=== PATIENT | male | born 1980 ===

== ENCOUNTER 2017-04-15 06:10 | Day surgery (SDC) | payer OTHER ==
[2017-04-13 10:50] VITALS: BMI 39.8
[2017-04-15] MEDS ORDERED: Lidocaine 2% Inj (20ml) ONE (06:27)
[2017-04-15] MEDS ORDERED: Iodixanol 320 MG/ML 200 ML BOTTLE IV ONE (06:27)
[2017-04-15] MEDS ORDERED: Iodixanol 320 MG/ML 100 ML BOTTLE IV ONE (06:27)
[2017-04-15] MEDS ORDERED: Phenylephrine 10 mg/ml Inj ONE (06:27)
[2017-04-15] MEDS ORDERED: Iohexol 350mgl/ml 50 ML ONE (06:27)
[2017-04-15] MEDS ORDERED: Nitroglycerin 50mg in D5W 0 MG/0 ML BOTTLE IV ONE (06:28)
[2017-04-15 07:02] LABS: BASO # 0.04 K/mm3 (0.0-2.0); BASO % 0.5 % (0.0-3.0); EOS # 0.4 (0.0-0.7); EOS % 4.3 % (1.5-5.0); GRAN # 4.66 (1.4-6.5); GRAN % 55.4 % (50.0-68.0); HEMATOCRIT 41.2 % (42.0-52.0); LYMPH # 2.6 (1.2-3.4); MEAN CELL VOLUME 68.8 fl (80.0-105.0); MEAN CORPUSCULAR HEMOGLOBIN 22.5 pg (25.0-35.0); MEAN CORPUSCULAR HGB CONC 32.8 g/dl (31.0-37.0); MEAN PLATELET VOLUME 10.1 fl (7.0-11.0); MONO # 0.7 (0.1-0.6); MONO % 8.8 % (1.0-6.0); RED CELL DISTRIBUTION WIDTH 15.3 % (11.5-14.5); WHITE BLOOD COUNT 8.4 10^3/ul (4.5-11.0)
[2017-04-15 07:08] LABS: INR 0.98 (0.93-1.08); PARTIAL THROMBOPLASTIN TIME 30.8 Seconds (25.1-36.5)
[2017-04-15 07:11] LABS: BLOOD UREA NITROGEN 14 mg/dL (7-21); CALCIUM 8.5 mg/dL (8.4-10.5); CARBON DIOXIDE 23 mmol/L (21-33); CHLORIDE 106 mmol/L (98-107); GFR AFRICAN-AMERICAN > 60; GLUCOSE,RANDOM 96 mg/dL (70-110); POTASSIUM 3.6 mmol/L (3.6-5.0); SODIUM 140 mmol/L (132-148)
[2017-04-15] MEDS ORDERED: Midazolam 2 MG/2 ML VIAL ONE ×2 (09:00→09:11)
[2017-04-15 10:13] VITALS: RESP 20; TEMP 98
[2017-04-15] MEDS ORDERED: Sodium Chloride 0.45% 1,000 ML IV SCH (10:15)
[2017-04-15 14:14] VITALS: O2SAT 98
[2017-04-15 14:18] VITALS: BP 110/69; PULSE 70
--- NOTE | 2017-04-15 14:26 | CARDCATH ---
PROCEDURE DATE: 04/15/2017 HISTORY: The patient is a 37-year-old male with a history of smoking as well as a strong family history of hypertension who presents with exertional shortness of breath. No angina noted. Noninvasive testing revealed an abnormal stress test with a markedly abnormal left ventricle with an ejection fraction of 14% on stress testing. A cardiac catheterization was recommended. PROCEDURE: Left heart catheterization with coronary angiography and left ventriculogram with supraaortic valvular injection. The right femoral artery was cannulated with 6-Bulgarian sheath. There were no complications. The findings on catheterization revealed a left ventricle that was markedly dilated and severely hypokinetic with an estimated ejection fraction between 10 and 15%. Supraaortic valvular injection revealed 1+ aortic insufficiency. His coronary anatomy revealed a left dominant circulation. The RCA revealed diffuse atherosclerosis with a 90% stenosis in the proximal portion. The left main artery was unremarkable. The LAD revealed a 90% stenosis in the proximal portion. The circumflex artery, which was a dominant vessel, revealed subtotal occlusion in its proximal portion. The obtuse marginal branch was subtotally occluded. Angio-Seal was used to close the femoral artery site. The patient tolerated the procedure well. In summary, the procedure revealed severe triple-vessel disease. Severe dilated cardiomyopathy. Given these findings, the patient will require coronary bypass surgery. We will call his cardiac surgeons to arrange for the procedure. Madhu Vuong MD
--- NOTE | 2017-04-15 22:56 | CARD ---
APPROVED REPORT EKG Measurement Heart [id number] IA 160P16 [id number] <Conclusion> Normal sinus rhythm Inferior infarct, age undetermined Cannot rule out Anterior infarct, age undetermined T wave abnormality, consider lateral ischemia Abnormal ECG
== END 2017-04-15 16:30 | disposition home or self-care (01) ==
LOC: CATH 06:10
PROVIDERS: ATTEND Internal Medicine Cardiovascular Disease
DX: I25.10 Atherosclerotic heart disease of native coronary artery without angina pectoris (principal); I42.0 Dilated cardiomyopathy; I35.1 Nonrheumatic aortic (valve) insufficiency; Z87.891 Personal history of nicotine dependence; Z82.49 Family history of ischemic heart disease and other diseases of the circulatory system
CPT/HCPCS: 36415; 80048; 85025; 85610; 85730; 86850; 86900; 93005; 93458; 99152; C1760; C1769; C2629; J1644; J2250; J3010; J7030; J7040; Q9967 ×2

== ENCOUNTER 2017-05-16 16:57 | Inpatient (IN) | payer OTHER ==
[2017-05-16 17:14] VITALS: BMI 36.3
--- NOTE | 2017-05-16 17:53 | ED PDOC ---
Arrival/HPI - General Historian: Patient - History of Present Illness Time/Duration: 24 hours Symptom Onset: Gradual Symptom Course: Unchanged Quality: Burning Severity Level: Moderate Context: Exertion <Jorge Jones - Last Filed: 05/16/17 20:02> <Vernon Flanagan DO - Last Filed: 05/16/17 20:52> - General Chief Complaint: Wound Check Time Seen by Provider: 05/16/17 16:58 - History of Present Illness Narrative History of Present Illness (Text): 05/16/17 17:49 This is a 37 yo male with past medical hx of CAD, s/p quintuple bypass earlier this month, presenting with chief complaint of pain and cellulitis of left leg. Patient had quintuple bypass sx at [place] in [place] on May 03, earlier this month. The surgery was performed by Dr. Goldman. Patient's only post op complication was he experienced some heart palpitations. He began developing redness and pain with walking on left lower leg yesterday. Pain was at same site of vein harvest for CABG surgery. Pt went to see primary Dr. Guerra earlier today who recommended pt come to ER. Pt says pain is mainly to touch and with walking. Pt denies fevers, chills, other systemic sx. PMH: CAD PSH: knee sx, quintuple bypass 2016 Allergies: NKDA FH: DM, heart disease Social hx: former smoker, quit 1 month ago. Social drinker. Uses marijuana. Lives with mother. (Jorge Jones) Past Medical History - Provider Review Nursing Documentation Reviewed: Yes - Travel History Have you recently traveled outside [place] w/in the past 3 mons?: No - Infectious Disease Hx of Infectious Diseases: None - Tetanus Immunization Tetanus Immunization: Unknown - Cardiac Hx Cardiac Disorders: Yes Hx Pacemaker: No Other/Comment: open heart surgery. external defib in place 05/16/17 - Pulmonary Hx Respiratory Disorders: No - Neurological Hx Neurological Disorder: No Hx Paralysis: No - HEENT Hx HEENT Disorder: Yes Other/Comment: glasses - Renal Hx Renal Disorder: No - Endocrine/Metabolic Hx Endocrine Disorders: No - Hematological/Oncological Hx Blood Disorders: No Hx Blood Transfusions: No - Integumentary Hx Dermatological Disorder: No - Musculoskeletal/Rheumatological Hx Musculoskeletal Disorders: Yes Other/Comment: L knee sx - Gastrointestinal Hx Gastrointestinal Disorders: No - Genitourinary/Gynecological Hx Genitourinary Disorders: No - Psychiatric Hx Psychophysiologic Disorder: No Hx Emotional Abuse: No Hx Physical Abuse: No Hx Substance Use: No - Surgical History Hx Musculoskeletal Surgery: Yes (L knee) Hx Open Heart Surgery: Yes Other/Comment: EXTERNAL DEFIB PRESENT - Anesthesia Hx Anesthesia: Yes Hx Anesthesia Reactions: Yes (TOOK VERY LONG TO WEAR OFF) Hx Malignant Hyperthermia: No - Suicidal Assessment Feels Threatened In Home Enviroment: No <Jorge Jones - Last Filed: 05/16/17 20:02> Family/Social History - Physician Review Nursing Documentation Reviewed: Yes Family/Social History: Diabetes, CAD/SD Smoking Status: Former Smoker Hx Alcohol Use: Yes Hx Substance Use: Yes <Jorge Jones - Last Filed: 05/16/17 20:02> Allergies/Home Meds <Jorge Jones - Last Filed: 05/16/17 20:02> <Vernon Flanagan DO - Last Filed: 05/16/17 20:52> Allergies/Adverse Reactions: Allergies No Known Allergies Allergy (Verified 05/16/17 17:14) Home Medications: Home Meds Medication Instructions Recorded Confirmed Aspirin [Ecotrin] 81 mg PO DAILY 04/13/17 05/16/17 Metoprolol Succinate [Toprol XL] 25 mg PO DAILY 04/13/17 05/16/17 traMADol [Ultram] 50 mg PO Q6H PRN 04/13/17 05/16/17 Atorvastatin [Lipitor] 80 mg PO DAILY 04/15/17 05/16/17 Amiodarone [Cordarone] 1 tab PO DAILY 05/16/17 05/16/17 Aspirin [[place] Aspirin] 81 mg PO DAILY 05/16/17 05/16/17 Carvedilol [Coreg] 1 tab PO DAILY 05/16/17 05/16/17 Clopidogrel [Plavix] 1 tab PO DAILY 05/16/17 05/16/17 Docusate Sodium [Stool Softener] 1 tab PO TID 05/16/17 05/16/17 Furosemide [Lasix] 20 mg PO DAILY 05/16/17 05/16/17 Potassium Chloride [K-Dur 20 mEq 1 tab PO DAILY 05/16/17 05/16/17 ER Tab] Review of Systems - Review of Systems Constitutional: absent: Fatigue, Fevers, Night Sweats Eyes: absent: Vision Changes, Photophobia ENT: absent: Hearing Changes, TMJ Pain Respiratory: absent: SOB, Cough Cardiovascular: absent: Chest Pain, Palpitations Gastrointestinal: absent: Abdominal Pain, Stool Changes Genitourinary Male: absent: Dysuria, Frequency Musculoskeletal: absent: Arthralgias, Back Pain Skin: Rash, Skin Lesions, Cellulitis Neurological: absent: Headache, Dizziness Endocrine: absent: Diaphoresis, Polyuria Hemo/Lymphatic: absent: Adenopathy, Easy Bleeding Psychiatric: absent: Anxiety, Depression <Jorge Jones - Last Filed: 05/16/17 20:02> Physical Exam Vital Signs Reviewed: Yes Mental Status: Positive for: Alert and Oriented X 3 - Systems Exam Head: Present: Atraumatic, Normocephalic Pupils: Present: PERRL Extroacular Muscles: Present: EOMI Conjunctiva: Present: Normal Mouth: Present: Moist Mucous Membranes Respiratory/Chest: Present: Clear to Auscultation, Good Air Exchange. No: Respiratory Distress Cardiovascular: Present: Normal S1, S2 Abdomen: Present: Normal Bowel Sounds. No: Tenderness, Distention, Peritoneal Signs Upper Extremity: Present: Normal Inspection. No: Cyanosis, Edema Lower Extremity: Present: Tenderness, Erythema, Other (Cellulitis, no pus or drainage, sutures intact.). No: Normal Inspection Neurological: Present: GCS=15, CN II-XII Intact, Speech Normal Skin: Present: Erythematous Psychiatric: Present: Alert, Oriented x 3, Normal Insight, Normal Concentration <Jorge Jones - Last Filed: 05/16/17 20:02> Vital Signs Temp Pulse Resp BP Pulse Ox 05/16/17 20:11 76 124/76 05/16/17 19:10 98.0 F 83 18 125/65 95 05/16/17 17:41 99.9 F H 05/16/17 17:34 98.1 F 98 H 17 117/75 95 05/16/17 17:17 98.1 F 98 H 17 117/75 95 - Lab Interpretations Lab Results: 05/16/17 17:58 05/16/17 17:58 Lab Results 05/16/17 18:16: pO2 67 H, VBG pH 7.41, VBG pCO2 40.0, VBG HCO3 25.4, VBG Total CO2 26.6, VBG O2 Sat (Calc) 95.7 H, VBG Base Excess 0.7, VBG Potassium 3.9, Glucose 156 H, Lactate 1.9, FiO2 21.0, Sodium 138.0, Chloride 104.0, Venous Blood Potassium 3.9 05/16/17 17:58: Sodium 139, Potassium 3.8, Chloride 103, Carbon Dioxide 25, Anion Gap 15, BUN 15, Creatinine 1.0, Est GFR ( Amer) > 60, Est GFR (Non- Af Amer) > 60, Random Glucose 153 H, Calcium 9.1, Total Bilirubin 1.5 H, AST 29 , ALT 59 H, Alkaline Phosphatase 85, Total Protein 7.5, Albumin 4.2, Globulin 3.3, Albumin/Globulin Ratio 1.2 05/16/17 17:58: WBC 11.1 H D, RBC 4.21, Hgb 10.3 L D, Hct 32.5 L, MCV 77.2 L D, MCH 24.5 L, MCHC 31.7, RDW 21.2 H, Plt Count 376, MPV 9.1, Gran % 77.9 H, Lymph % (Auto) 9.0 L, [place] % (Auto) 10.3 H, Eos % (Auto) 2.6, Baso % (Auto) 0.2, Gran # 8.67 H, Lymph # 1.0 L, [place] # 1.2 H, Eos # 0.3, Baso # 0.02 - Medication Orders Current Medication Orders: Amiodarone HCl (Cordarone) 200 mg PO DAILY [facility] Aspirin (Ecotrin) 81 mg PO DAILY [facility] Atorvastatin Calcium (Lipitor) 80 mg PO DIN [facility] Last Admin: 05/16/17 19:53 Dose: 80 mg Carvedilol (Coreg) 6.25 mg PO 0800,1800 [facility] Last Admin: 05/16/17 20:11 Dose: 6.25 mg [facility] Pulse and Blood Pressure Document 05/16/17 20:11 SC (Rec: 05/16/17 20:12 [facility]-[id number]) Pulse Pulse Rate (60-90) 76 Blood Pressure Blood Pressure (100/60-150/90) 124/76 Clopidogrel Bisulfate (Plavix) 75 mg PO DAILY [facility] Docusate Sodium (Colace Liquid) 100 mg PO TID [facility] Last Admin: 05/16/17 20:11 Dose: 100 mg Enoxaparin Sodium (Lovenox) 30 mg SC DAILY [facility] PRN Reason: Protocol Furosemide (Lasix) 20 mg PO DAILY [facility] Ceftriaxone Sodium (Rocephin 1 Gram Ivpb) 1 gm in 100 mls @ 100 mls/hr IVPB DAILY [facility] PRN Reason: Protocol Metoprolol Succinate (Toprol Xl) 25 mg PO DAILY [facility] Neomycin/Polymyxin/Bacitracin (Neosporin Triple Antibiotic Oint) 0 gm TOP DAILY [facility] Pantoprazole Sodium (Protonix Ec Tab) 40 mg PO 0600 [facility] Potassium Chloride (K-Dur 20 Meq Er Tab) 20 meq PO DAILY [facility] Tramadol HCl (Ultram) 50 mg PO Q6H PRN PRN Reason: Pain, severe (8-10) Last Admin: 05/16/17 19:53 Dose: 50 mg MAR Pain Assessment Document 05/16/17 19:53 SC (Rec: 05/16/17 19:53 SC [id number]) Pain Reassessment Is this a pain reassessment? Yes Sleep Is patient sleeping during reassessment? No Presence of Pain Presence of Pain Yes Pain Scale Used Pain Scale Used Numeric Location Pain Location Body Site Chest Description Description Constant Intensity of Pain at present 6 Discontinued Medications Ceftriaxone Sodium (Rocephin 1 Gram Ivpb) 1 gm in 100 mls @ 200 mls/hr IVPB STAT STA PRN Reason: Protocol Stop: 05/16/17 19:00 Last Admin: 05/16/17 19:19 Dose: 200 mls/hr eMAR Start Stop Document 05/16/17 19:19 RG (Rec: 05/16/17 19:20 RG [facility] [id number]) Intravenous Solution Start Date 05/16/17 Start Time 19:19 - PA / SHIP LOADER / Resident Statement AGNIESZKA has reviewed & agrees with the documentation as recorded. AGNIESZKA has examined the patient and agrees with the treatment plan. <Vernon Flanagan DO - Last Filed: 05/16/17 20:52> Disposition/Present on Arrival - Present on Arrival History of DVT/PE: No History of Uncontrolled Diabetes: No Urinary Catheter: No History of Decub. Ulcer: No History Surgical Site Infection Following: None - Disposition Have Diagnosis and Disposition been Completed?: Yes Disposition Time: 19:00 Patient Plan: Admission <Jorge Jones - Last Filed: 05/16/17 20:02> - Present on Arrival Any Indicators Present on Arrival: No - Disposition Have Diagnosis and Disposition been Completed?: Yes <Vernon Flanagan DO - Last Filed: 05/16/17 20:52> - Disposition Diagnosis: Cellulitis Disposition: HOSPITALIZED Condition: GUARDED
[2017-05-16 18:15] LABS: BASO # 0.02 K/mm3 (0.0-2.0); BASO % 0.2 % (0.0-3.0); EOS # 0.3 (0.0-0.7); EOS % 2.6 % (1.5-5.0); GRAN # 8.67 (1.4-6.5); GRAN % 77.9 % (50.0-68.0); HEMATOCRIT 32.5 % (42.0-52.0); MEAN CELL VOLUME 77.2 fl (80.0-105.0); MEAN CORPUSCULAR HEMOGLOBIN 24.5 pg (25.0-35.0); MEAN CORPUSCULAR HGB CONC 31.7 g/dl (31.0-37.0); MEAN PLATELET VOLUME 9.1 fl (7.0-11.0); MONO # 1.2 (0.1-0.6); MONO % 10.3 % (1.0-6.0); RED CELL DISTRIBUTION WIDTH 21.2 % (11.5-14.5); WHITE BLOOD COUNT 11.1 10^3/ul (4.5-11.0)
[2017-05-16 18:20] LABS: VENOUS BLOOD GAS BASE EXCESS 0.7 mmol/L (0.0-2.0); VENOUS BLOOD PH 7.41 (7.32-7.43)
[2017-05-16 18:23] LABS: ALB/GLOB RATIO 1.2 (1.1-1.8); ALKALINE PHOSPHATASE 85 U/L (38-126); ALT/SGPT 59 U/L (7-56); AST/SGOT 29 U/L (17-59); BILIRUBIN,TOTAL 1.5 mg/dL (0.2-1.3); BLOOD UREA NITROGEN 15 mg/dL (7-21); CALCIUM 9.1 mg/dL (8.4-10.5); CARBON DIOXIDE 25 mmol/L (21-33); CHLORIDE 103 mmol/L (98-107); GFR AFRICAN-AMERICAN > 60; GLUCOSE,RANDOM 153 mg/dL (70-110); POTASSIUM 3.8 mmol/L (3.6-5.0); SODIUM 139 mmol/L (132-148); TOTAL PROTEIN 7.5 g/dL (5.8-8.3)
[2017-05-16] MEDS ORDERED: cefTRIAXone 1 gm 1 GM/100 ML BAG IVPB STA (18:31)
--- NOTE | 2017-05-16 19:32 | CP.PCM.HP ---
History of Present Illness - History of Present Illness History of Present Illness: CC: Pain when I walk. Patient is a 37 y/o Male with pmh significant for CAD with 5 vessel disease s/p recent quintuple bypass surgery ( 05/03/17) at [facility] by Dr Goldman , with post op complications of anemia with 4 units of prbc transfusion, and arrhythmias with poor LVEF currently with life vest whom went to see Dr Guerra in the office today complaining of surgical incision site infection and pain when he ambulates. Pt was able to ambulate without difficulty, then yesterday he noticed left medial leg was swollen and painful when he ambulates. Otherwise patient denies fever, n/v/d. Denies chest pain, denies inapropriate discharge of the life vest since being discharged home. Admits to chills since the surgery. PMH: CAD s/p quintuple bypass, ischemic dilated cardiomyopathy PSH: Bypass surgery, knee surgery FMH: Mom and dad had [place], htn Social: former tobacco abuse,10 pack a year history, former marijuana abuse, former daily alcohol consumer. Was working as a customer service correspondence clerk. Allergy: NKDA Home meds: Please see emr for updated list. Present on Admission - Present on Admission Any Indicators Present on Admission: Yes History of DVT/PE: No History of Uncontrolled Diabetes: No Urinary Catheter: No Decubitus Ulcer Present: No Past Patient History - Infectious Disease Hx of Infectious Diseases: None - Tetanus Immunizations Tetanus Immunization: Unknown - Past Social History Smoking Status: Former Smoker - CARDIAC Hx Cardiac Disorders: Yes Hx Pacemaker: No Other/Comment: open heart surgery. external defib in place 05/16/17 - PULMONARY Hx Respiratory Disorders: No - NEUROLOGICAL Hx Neurological Disorder: No Hx Paralysis: No - HEENT Hx HEENT Problems: Yes Other/Comment: glasses - RENAL Hx Chronic Kidney Disease: No - ENDOCRINE/METABOLIC Hx Endocrine Disorders: No - HEMATOLOGICAL/ONCOLOGICAL Hx Blood Disorders: No Hx Blood Transfusions: No - INTEGUMENTARY Hx Dermatological Problems: No - MUSCULOSKELETAL/RHEUMATOLOGICAL Hx Musculoskeletal Disorders: Yes Other/Comment: L knee sx - GASTROINTESTINAL Hx Gastrointestinal Disorders: No - GENITOURINARY/GYNECOLOGICAL Hx Genitourinary Disorders: No - PSYCHIATRIC Hx Psychophysiologic Disorder: No Hx Emotional Abuse: No Hx Physical Abuse: No Hx Substance Use: Yes - SURGICAL HISTORY Hx Musculoskeletal Surgery: Yes (L knee) Hx Open Heart Surgery: Yes Other/Comment: EXTERNAL DEFIB PRESENT - ANESTHESIA Hx Anesthesia: Yes Hx Anesthesia Reactions: Yes (TOOK VERY LONG TO WEAR OFF) Hx Malignant Hyperthermia: No Meds Allergies/Adverse Reactions: Allergies Allergy/AdvReac Type Severity Reaction Status Date / Time No Known Allergies Allergy Verified 05/16/17 17:14 Physical Exam - Constitutional Appears: No Acute Distress - Head Exam Head Exam: ATRAUMATIC, NORMAL INSPECTION, NORMOCEPHALIC - Eye Exam Eye Exam: EOMI, Normal appearance, PERRL. absent: Scleral icterus Pupil Exam: NORMAL ACCOMODATION - ENT Exam ENT Exam: Mucous Membranes Moist - Neck Exam Neck exam: Positive for: Normal Inspection - Respiratory Exam Respiratory Exam: Clear to Auscultation Bilateral, NORMAL BREATHING PATTERN. absent: Rales, Rhonchi, Wheezes, Respiratory Distress, Stridor - Cardiovascular Exam Cardiovascular Exam: REGULAR RHYTHM, RRR, +S1, +S2. absent: Systolic Murmur - GI/Abdominal Exam GI & Abdominal Exam: Normal Bowel Sounds, Soft. absent: Distended, Firm, Guarding, Rebound, Rigid, Tenderness - Extremities Exam Additional comments: No pitting edema b/l, bilateral intact surgical incision at the medial aspect of the leg, right incision with surrounding ecchymosis, while left incision has surrounding erythema with edema, and warm to touch. No drainage. Patient is able to flex and extend the LE, dorsalis pedis and posterior tibial pulses + 2 kings. Midline chest incison is intact, mild surouding erythema, covered with stery strips. Below xiphoid is another circular incision where the drain was, Results - Vital Signs Recent Vital Signs: Last Vital Signs Temp 98.0 F 05/16/17 19:10 Pulse 83 05/16/17 19:10 Resp 18 05/16/17 19:10 BP 125/65 05/16/17 19:10 Pulse Ox 95 05/16/17 19:10 - Labs Result Diagrams: 05/16/17 17:58 05/16/17 17:58 Assessment & Plan - Assessment and Plan (Free Text) Assessment: Patient is a 37 y/o Male with pmh significant for CAD with 5 vessel disease s/p recent quintuple bypass surgery presenting with infection of the left medial leg surgical wound infection and cellulites. Plan: 1) Left medial leg surgical wound infection and cellulites, r/o DVT - Pending lower extremities u/s - mild leukocytosis, and afebrile. - s/p a dose of Rocephin in the ED, - Will continue Rocephin - ID consulted - Concern for MRSA - Blood culture sent - wound care nurse referral for the lower chest wound - keep leg elevated - Tramadol prn for pain 2) CAD s/p quintuple bypass with ischemic cardiomyoapthy and arrhythmias - Continue to wear the life vest - Cardiology consult - Continue with coreg, Lopressor, asa, high dose Lipitor, Lasix and plavix. - Patient is also on amiodorone for arrhythmias. 3) Constipation prevention- c/w docusate 4) Microcytic anemia due to hemorrhage during the CABG - Patient reproted he had 4 units of prbc at [place] as per patient. - Currently asymptomatic at hgb of 10.3 - will hold off transfusion and transfuse if below 8 5) DVT prophylaxis: Lovenox sc 6) GI prophylaxis: protonix. Patient seen, examined and case discussed with Dr Aldana. - Date & Time Date: 05/16/17 Time: 07:50
[2017-05-16] MEDS: Vancomycin 1gm in NS 250ml 1 GM/250 ML BAG IVPB SCH (22:15)
[2017-05-17] MEDS ORDERED: Pantoprazole 40 mg EC Tab PO SCH (06:00)
[2017-05-17 06:27] LABS: BASO # 0.03 K/mm3 (0.0-2.0); BASO % 0.3 % (0.0-3.0); EOS # 0.4 (0.0-0.7); EOS % 3.9 % (1.5-5.0); GRAN # 7.71 (1.4-6.5); GRAN % 73.1 % (50.0-68.0); HEMATOCRIT 30.2 % (42.0-52.0); LYMPH # 1.3 (1.2-3.4); LYMPH % 12.3 % (22.0-35.0); MEAN CELL VOLUME 77.2 fl (80.0-105.0); MEAN CORPUSCULAR HEMOGLOBIN 24.3 pg (25.0-35.0); MEAN CORPUSCULAR HGB CONC 31.5 g/dl (31.0-37.0); MEAN PLATELET VOLUME 9.2 fl (7.0-11.0); MONO # 1.1 (0.1-0.6); MONO % 10.4 % (1.0-6.0); RED CELL DISTRIBUTION WIDTH 21.1 % (11.5-14.5); WHITE BLOOD COUNT 10.5 10^3/ul (4.5-11.0)
[2017-05-17 07:16] LABS: ALB/GLOB RATIO 1.3 (1.1-1.8); ALKALINE PHOSPHATASE 73 U/L (38-126); ALT/SGPT 42 U/L (7-56); AST/SGOT 35 U/L (17-59); BILIRUBIN,TOTAL 1.2 mg/dL (0.2-1.3); BLOOD UREA NITROGEN 12 mg/dL (7-21); CALCIUM 8.8 mg/dL (8.4-10.5); CARBON DIOXIDE 27 mmol/L (21-33); CHLORIDE 104 mmol/L (98-107); GFR AFRICAN-AMERICAN > 60; GLUCOSE,RANDOM 102 mg/dL (70-110); POTASSIUM 3.7 mmol/L (3.6-5.0); SODIUM 139 mmol/L (132-148); TOTAL PROTEIN 6.8 g/dL (5.8-8.3)
[2017-05-17 07:44] LABS: CHOLESTEROL 135 mg/dL (130-200)
[2017-05-17] MEDS ORDERED: Bacitracin 500 Units/gm Oint Foilpak UD ONE (08:31)
[2017-05-17] MEDS: Enoxaparin 30 mg Syringe SC SCH (09:03)
[2017-05-17] MEDS: Bacitracin/Neomycin/Polymyxin Oint(30GM) TOP SCH (09:03)
--- NOTE | 2017-05-17 09:03 | US ---
HISTORY: Leg pain and swelling. Evaluate for DVT PHYSICIAN(S): Madhu Andrade MD. TECHNIQUE: Duplex sonography and color-flow Doppler with graded compression were used to evaluate the deep venous systems of both lower extremities. FINDINGS: The visualized deep venous systems of both lower extremities are sonographically normal and compressible. Normal wave forms and augmentation are seen. There is no sonographic evidence for deep venous thrombosis in the visualized segments of both lower extremities. IMPRESSION: No sonographic evidence for deep venous thrombosis in the visualized segments of both lower extremities.
[2017-05-17] MEDS: Potassium Chloride 20 mEq ER Tab PO SCH (09:04)
[2017-05-17] MEDS: Metoprolol Succinate 25 mg XL Tab PO SCH (09:05)
[2017-05-17] MEDS ORDERED: cefTRIAXone 1 gm 1 GM/100 ML BAG IVPB SCH (10:00)
--- NOTE | 2017-05-17 10:18 | CARD ---
APPROVED REPORT EKG Measurement Heart [id number] VT 148P76 [id number] <Conclusion> Normal sinus rhythm PRWP Possible anterior MO STTW changes c/w ischemia LVH by voltage Small inferior q waves 2,3,F No change
[2017-05-17] MEDS: Vancomycin 1gm in NS 250ml 1 GM/250 ML BAG IVPB SCH ×2 (10:35→21:09)
--- NOTE | 2017-05-17 10:56 | CP.PCM.PN ---
Subjective - Date & Time of Evaluation Date of Evaluation: 05/17/17 Time of Evaluation: 06:45 - Subjective Subjective: IM progress note for Dr. Aldana/Dr. Guerra Service Patient seen and examined at bedside on F. No acute events reported overnight. Patient complaining of pain associated with left leg and musculoskeletal chest pain associated with his sternal scar s/p CABG on . Patient denies shortness of breath, nasuea, vomiting, fever, chills, abdominal pain, numbness, weakness. Patient receiving IV antibiotics currently. Objective - Vital Signs/Intake and Output Vital Signs (last 24 hours): Temp Pulse Resp BP Pulse Ox 99.2 F 72 20 125/68 95 05/17/17 08:40 05/17/17 09:04 05/17/17 08:40 05/17/17 09:05 05/17/17 08:40 Intake and Output: 05/17/17 05/17/17 06:59 18:59 Intake Total 790 Output Total 100 Balance 690 - Medications Medications: Current Medications Amiodarone HCl (Cordarone) 200 mg PO DAILY [facility] Last Admin: 05/17/17 09:04 Dose: 200 mg Aspirin (Ecotrin) 81 mg PO DAILY [facility] Last Admin: 05/17/17 09:04 Dose: 81 mg Atorvastatin Calcium (Lipitor) 80 mg PO DIN [facility] Last Admin: 05/16/17 19:53 Dose: 80 mg Carvedilol (Coreg) 6.25 mg PO 0800,1800 [facility] Last Admin: 05/17/17 08:08 Dose: 6.25 mg Clopidogrel Bisulfate (Plavix) 75 mg PO DAILY [facility] Last Admin: 05/17/17 09:04 Dose: 75 mg Docusate Sodium (Colace Liquid) 100 mg PO TID [facility] Last Admin: 05/17/17 09:03 Dose: 100 mg Enoxaparin Sodium (Lovenox) 30 mg SC DAILY [facility] PRN Reason: Protocol Last Admin: 05/17/17 09:03 Dose: 30 mg Furosemide (Lasix) 20 mg PO DAILY [facility] Last Admin: 05/17/17 09:05 Dose: 20 mg Vancomycin HCl (Vancomycin 1gm) 1 gm in 250 mls @ 167 mls/hr IVPB Q12H [facility] PRN Reason: Protocol Last Admin: 05/17/17 10:35 Dose: 167 mls/hr Cefepime HCl (Maxipime 1gm) 1 gm in 100 mls @ 100 mls/hr IVPB Q8 [facility] PRN Reason: Protocol Stop: 05/26/17 14:01 Metoprolol Succinate (Toprol Xl) 25 mg PO DAILY [facility] Last Admin: 05/17/17 09:05 Dose: 25 mg Neomycin/Polymyxin/Bacitracin (Neosporin Triple Antibiotic Oint) 0 gm TOP DAILY [facility] Last Admin: 05/17/17 09:03 Dose: 1 unit Pantoprazole Sodium (Protonix Ec Tab) 40 mg PO 0600 [facility] Last Admin: 05/17/17 05:22 Dose: 40 mg Potassium Chloride (K-Dur 20 Meq Er Tab) 20 meq PO DAILY [facility] Last Admin: 05/17/17 09:04 Dose: 20 meq Tramadol HCl (Ultram) 50 mg PO Q6H PRN PRN Reason: Pain, severe (8-10) Last Admin: 05/17/17 08:01 Dose: 50 mg - Labs Labs: 05/17/17 05:30 05/17/17 05:30 - Constitutional Appears: Well - Head Exam Head Exam: ATRAUMATIC, NORMAL INSPECTION, NORMOCEPHALIC - Eye Exam Eye Exam: EOMI, PERRL Pupil Exam: PERRL - ENT Exam ENT Exam: Mucous Membranes Moist - Neck Exam Neck Exam: Full ROM. absent: Lymphadenopathy - Respiratory Exam Respiratory Exam: Clear to Ausculation Bilateral, NORMAL BREATHING PATTERN. absent: Rales, Rhonchi, Wheezes - Cardiovascular Exam Cardiovascular Exam: REGULAR RHYTHM, +S1, +S2. absent: Clicks, JVD, Murmur - GI/Abdominal Exam GI & Abdominal Exam: Soft, Normal Bowel Sounds. absent: Guarding, Tenderness - Extremities Exam Extremities Exam: Normal Capillary Refill. absent: Pedal Edema Additional comments: Left medial anterior thigh/popliteal area with mild erythema, warm to touch, mild tenderness with surgical markings surrounding area - Back Exam Back Exam: NORMAL INSPECTION. absent: CVA tenderness (L), CVA tenderness (R) - Neurological Exam Neurological Exam: Alert, Awake, Oriented x3 - Psychiatric Exam Psychiatric exam: Normal Affect, Normal Mood - Skin Skin Exam: Dry, Intact. absent: Rash Additional comments: erythema and warmth to touch noted on left medial and posterior distal thigh/ knee, surgical scar with intact sutures, no evidence of drainage Sternal surgical bandages in place c/d/i no evidence of drainage or erythema Assessment and Plan - Assessment and Plan (Free Text) Assessment: Patient is a 37 year old male with PMH significant for CAD with 5 vessel CABG on 05/03/2017 who presents with infection of his left medial surgical site suspicious for cellulitis Plan: 1. Left medial leg surgical wound infection with high suspicion for cellulitis - Recent CABG x5 on 05/03/2017 with use of saphenous vein grafting - On admission shown to have mild elevation of WBC, afebrile - ID consulted and following - Blood culture pending - US extremity negative for DVT - Wound Care - IV Vancomycin and Cefepime - Neosporin TOP - Pain management with tramadol 2. CAD s/p CABGx5 with ischemic cardiomyopathy - Patient wearing Life vest - Cardiology consulted, appreciate recs - Continue Lasix, ARB, ASA, Plavix, BB 3. CHF - Ischemic cardiomyopathy - Continue Life vest - Continue home meds 4. Anemia - Microcytic Anemia 2/2 prior CABG and suspected blood loss - Per report patient received 4 units of pRBC - H/H stable at this time DVT ppx: Lovenox GI ppx: Protonix Patient seen, examined and case discussed with Dr. Guerra
[2017-05-17] MEDS: Cefepime 1gm in NS 100ml 1 GM/100 ML BAG IVPB SCH ×2 (13:09→21:06)
--- NOTE | 2017-05-17 20:07 | CON ---
DATE: 05/17/2017 The patient is in bed. CHIEF COMPLAINT: Lower extremity erythema in the left leg several days. HISTORY OF PRESENT ILLNESS: This is a 37-year-old male with past medical history of recent diagnosis of coronary artery disease status post coronary artery bypass graft on 05/03/2017, there was left leg erythema, edema, and the patient's right leg was used also for vein harvest for coronary artery bypass graft and the patient denies any fevers, or chills. He is complaining about pain in the left more so on the left than the right. No chest pain. No shortness of breath. No headaches or blurry vision. PAST MEDICAL HISTORY: Significant for coronary artery disease. The patient also has high cholesterol and hypertension. PAST SURGICAL HISTORY: Significant for coronary artery bypass graft on 05/03/2017. FAMILY HISTORY: A very strong family history of heart disease. SOCIAL HISTORY: He is also a smoker for many years at least 20 years. ALLERGIES: HE HAS NO KNOWN ALLERGIES. MEDICATIONS: At home include Lasix, aspirin, metoprolol, Plavix, Coreg, Lipitor, and amiodarone. PHYSICAL EXAMINATION GENERAL: He is in bed, in no acute distress, nontoxic. VITAL SIGNS: Temperature of 99.9, pulse of 98, respiratory rate of 20, blood pressure 125/60. HEENT: Unremarkable. NECK: Supple. LUNGS: Have decreased breath sounds. HEART: Normal S1 and S2. ABDOMEN: Soft and nontender. EXTREMITIES: Examination of the leg reveals the left leg has erythema and edema. No break and no discharge. LABORATORY DATA: White count of 11,100, hemoglobin 10, platelet 376. Chemistry reveals the BUN of 15, creatinine of 1.0, AST is 29, ALT is 59. Ultrasound of extremities are noted. No evidence of DVT. ASSESSMENT AND PLAN: A 37-year-old male with history of high cholesterol, hypertension, strong family history of heart disease, long time smoker of 20 years, now admitted status post coronary artery bypass graft on 05/03/2017, presenting with left leg cellulitis secondary to the surgery. We will treat with vancomycin and Maxipime. Pending RUSSELL culture results and clinical response on examination of the leg, we will make further recommendations. We will follow with you. Home Oh MD
[2017-05-18] MEDS: Cefepime 1gm in NS 100ml 1 GM/100 ML BAG IVPB SCH (05:29)
--- NOTE | 2017-05-18 08:11 | CON ---
CARDIOLOGY CONSULTATION: DATE: 05/17/2017 HISTORY: The patient is a 37-year-old male who was found to have exertional dyspnea. He was found on cardiac workup to have severe triple-vessel CAD as well as a markedly abnormal LV function with an EF of approximately 20%. He was sent to [place] where the patient underwent coronary bypass surgery. His postoperative course was mildly complicated; however, he was discharged less than 1 week ago. He presents with discomfort in his left lower extremity at the entry site of his saphenous vein graft harvesting. He denies chest pain, denies shortness of breath. Does complain of sternal wound pain. PAST MEDICAL HISTORY: The patient's past medical history is notable for strong family history for CAD. He was discharged on amiodarone, aspirin and low-dose beta blockers. SOCIAL HISTORY: The patient is a former heavy drinker. REVIEW OF SYSTEMS: Reviewed in detail. No other symptomatology is noted other than mild pedal edema in the lower extremities. PHYSICAL EXAMINATION: VITAL SIGNS: Blood pressure is 125/68, heart rate is in the 70s. NECK: Negative JVD. LUNGS: Without rales. HEART: With S1 and S2. EXTREMITIES: The discomfort is in the area under the entry site for saphenous vein graft harvesting. No erythema noted. LABORATORY DATA: Reveals a white count of 11.1 which is down to 10.5, hemoglobin is 9.5. Chemistries, BUN and creatinine are unremarkable. Glucose is 102. IMPRESSION: 1. Hematoma in the left lower extremity at the area of saphenous vein graft harvesting. I doubt whether there is cellulitis. 2. Stable angina. 3. Status post coronary artery bypass surgery. 4. History of dilated cardiomyopathy. 5. Coronary artery disease. Given these findings, I will discuss with ID about the need for antibiotics. Warm soaks have been ordered for the area. We will begin physical therapy with ambulation. In addition, some of his medications need to be changed. We will stop his Plavix. Decrease his Lipitor to 40 mg daily. We will continue his metoprolol. Madhu Vuong MD
[2017-05-18] MEDS: Enoxaparin 30 mg Syringe SC SCH (09:01)
[2017-05-18] MEDS: Potassium Chloride 20 mEq ER Tab PO SCH (09:01)
[2017-05-18] MEDS: Metoprolol Succinate 25 mg XL Tab PO SCH (09:01)
[2017-05-18] MEDS: Vancomycin 1gm in NS 250ml 1 GM/250 ML BAG IVPB SCH (09:02)
[2017-05-18] MEDS: Bacitracin/Neomycin/Polymyxin Oint(30GM) TOP SCH (09:03)
[2017-05-18 10:21] LABS: BASO # 0.01 K/mm3 (0.0-2.0); BASO % 0.1 % (0.0-3.0); EOS # 0.4 (0.0-0.7); EOS % 4.9 % (1.5-5.0); GRAN # 5.59 (1.4-6.5); GRAN % 70.9 % (50.0-68.0); HEMATOCRIT 30.5 % (42.0-52.0); LYMPH # 1.1 (1.2-3.4); LYMPH % 14.3 % (22.0-35.0); MEAN CELL VOLUME 75.7 fl (80.0-105.0); MEAN CORPUSCULAR HEMOGLOBIN 23.6 pg (25.0-35.0); MEAN CORPUSCULAR HGB CONC 31.1 g/dl (31.0-37.0); MEAN PLATELET VOLUME 9.5 fl (7.0-11.0); MONO # 0.8 (0.1-0.6); MONO % 9.8 % (1.0-6.0); RED CELL DISTRIBUTION WIDTH 20.4 % (11.5-14.5); WHITE BLOOD COUNT 7.9 10^3/ul (4.5-11.0)
[2017-05-18 10:36] LABS: ALB/GLOB RATIO 1.2 (1.1-1.8); ALKALINE PHOSPHATASE 70 U/L (38-126); ALT/SGPT 39 U/L (7-56); AST/SGOT 24 U/L (17-59); BILIRUBIN,TOTAL 1.1 mg/dL (0.2-1.3); BLOOD UREA NITROGEN 10 mg/dL (7-21); CALCIUM 8.8 mg/dL (8.4-10.5); CARBON DIOXIDE 28 mmol/L (21-33); CHLORIDE 102 mmol/L (98-107); GFR AFRICAN-AMERICAN > 60; GLUCOSE,RANDOM 132 mg/dL (70-110); MAGNESIUM 1.9 mg/dL (1.7-2.2); PHOSPHOROUS 2.9 mg/dL (2.5-4.5); POTASSIUM 3.8 mmol/L (3.6-5.0); SODIUM 139 mmol/L (132-148); TOTAL PROTEIN 6.5 g/dL (5.8-8.3)
--- NOTE | 2017-05-18 13:35 | CP.PCM.PN ---
Subjective - Date & Time of Evaluation Date of Evaluation: 05/18/17 Time of Evaluation: 07:45 - Subjective Subjective: Patient seen and examined at bedside. No acute events reported overnight. Patient reports improved symptoms from admission. Patient reports ambulating around medical floor without shob, chest pain. Denies nausea, vomiting, fever, chills. Patient continues to receive IV antibiotics Objective - Vital Signs/Intake and Output Vital Signs (last 24 hours): Temp Pulse Resp BP Pulse Ox 98.3 F 79 20 120/72 98 05/18/17 06:00 05/18/17 06:00 05/18/17 06:00 05/18/17 09:01 05/18/17 06:00 Intake and Output: 05/18/17 05/18/17 06:59 18:59 Intake Total 660 120 Output Total 1050 500 Balance -390 -380 - Medications Medications: Current Medications Amiodarone HCl (Cordarone) 200 mg PO DAILY [facility] Last Admin: 05/18/17 09:00 Dose: 200 mg Aspirin (Ecotrin) 81 mg PO DAILY [facility] Last Admin: 05/18/17 09:00 Dose: 81 mg Atorvastatin Calcium (Lipitor) 40 mg PO DIN [facility] Last Admin: 05/17/17 17:12 Dose: 40 mg Docusate Sodium (Colace Liquid) 100 mg PO TID [facility] Last Admin: 05/18/17 13:23 Dose: 100 mg Enoxaparin Sodium (Lovenox) 30 mg SC DAILY [facility] PRN Reason: Protocol Last Admin: 05/18/17 09:01 Dose: 30 mg Furosemide (Lasix) 20 mg PO DAILY [facility] Last Admin: 05/18/17 09:01 Dose: 20 mg Vancomycin HCl (Vancomycin 1gm) 1 gm in 250 mls @ 167 mls/hr IVPB Q12H NICKY PRN Reason: Protocol Last Admin: 05/18/17 09:02 Dose: 167 mls/hr Cefepime HCl (Maxipime 1gm) 1 gm in 100 mls @ 100 mls/hr IVPB Q8 NICKY PRN Reason: Protocol Stop: 05/26/17 14:01 Last Admin: 05/18/17 05:29 Dose: 100 mls/hr Metoprolol Succinate (Toprol Xl) 25 mg PO DAILY [facility] Last Admin: 05/18/17 09:01 Dose: 25 mg Neomycin/Polymyxin/Bacitracin (Neosporin Triple Antibiotic Oint) 0 gm TOP DAILY [facility] Last Admin: 05/18/17 09:03 Dose: 1 unit Potassium Chloride (K-Dur 20 Meq Er Tab) 20 meq PO DAILY [facility] Last Admin: 05/18/17 09:01 Dose: 20 meq Tramadol HCl (Ultram) 50 mg PO Q6H PRN PRN Reason: Pain, severe (8-10) Last Admin: 05/17/17 22:47 Dose: 50 mg - Labs Labs: 05/18/17 10:18 05/18/17 10:18 - Constitutional Appears: Non-toxic - Head Exam Head Exam: ATRAUMATIC, NORMAL INSPECTION, NORMOCEPHALIC - Eye Exam Eye Exam: PERRL Pupil Exam: PERRL - ENT Exam ENT Exam: Mucous Membranes Moist, Normal Exam - Neck Exam Neck Exam: Normal Inspection - Cardiovascular Exam Cardiovascular Exam: REGULAR RHYTHM, +S1, +S2 - GI/Abdominal Exam GI & Abdominal Exam: Soft, Normal Bowel Sounds. absent: Tenderness Additional comments: surgical dressing in place c/d/i - Extremities Exam Extremities Exam: Normal Capillary Refill, Pedal Edema (trace). absent: Calf Tenderness - Neurological Exam Neurological Exam: Alert, Awake, Normal Gait, Oriented x3 - Psychiatric Exam Psychiatric exam: Normal Affect, Normal Mood - Skin Skin Exam: Dry, Intact, Warm Additional comments: Patient with surgical incisions on both lower extremities secondary to vein grafting for CABG conducted 2 weeks prior to admission. Surgical incisions are with stitichin intact without drainage or wheeping of fluid, multiple bruises surrounding these sites likely secondary to surgery Patient left medial thigh with continued elevation in warmth, eythema improved, distribution stable Assessment and Plan - Assessment and Plan (Free Text) Assessment: Patient is a 37 year old male with PMH significant for CAD with 5 vessel CABG on 05/03/2017 who presents with infection of his left medial surgical site suspicious for cellulitis Plan: 1. Left medial leg surgical wound infection with high suspicion for cellulitis - Recent CABG x5 on 05/03/2017 with use of saphenous vein grafting - On admission shown to have mild elevation of WBC, afebrile - ID consulted and following - Blood culture negative to date - Wound culture negative to date - US extremity negative for DVT - Wound Care - IV Vancomycin and Cefepime Day 2 - Neosporin TOP - Pain management with tramadol - Will continue to monitor patient for another 24 hours 2. CAD s/p CABGx5 with ischemic cardiomyopathy - Patient wearing Life vest - Cardiology consulted, appreciate recs - Discontinue plavix - Decrease statin - Echocardiogram, prelim showing EF 11% - Continue Lasix, ARB, ASA, BB 3. CHF - Ischemic cardiomyopathy - Continue Life vest - Continue home meds 4. Anemia - Microcytic Anemia 2/2 prior CABG and suspected blood loss - Per report patient received 4 units of pRBC - H/H stable at this time DVT ppx: Lovenox GI ppx: Protonix Patient seen, examined and case discussed with Dr. Aldana
--- NOTE | 2017-05-18 18:02 | CP.PCM.PN ---
Subjective - Date & Time of Evaluation Date of Evaluation: 05/18/17 Time of Evaluation: 11:15 - Subjective Subjective: Comfortable in bed, less pain in the right medial thigh area. No fevers overnight, no nausea or diarrhea. Objective - Vital Signs/Intake and Output Vital Signs (last 24 hours): Temp Pulse Resp BP Pulse Ox 98.3 F 79 20 120/72 98 05/18/17 06:00 05/18/17 06:00 05/18/17 06:00 05/18/17 09:01 05/18/17 06:00 Intake and Output: 05/18/17 05/18/17 06:59 18:59 Intake Total 660 1680 Output Total 1050 500 Balance -390 1180 - Medications Medications: Current Medications Amiodarone HCl (Cordarone) 200 mg PO DAILY [facility] Last Admin: 05/18/17 09:00 Dose: 200 mg Aspirin (Ecotrin) 81 mg PO DAILY [facility] Last Admin: 05/18/17 09:00 Dose: 81 mg Atorvastatin Calcium (Lipitor) 40 mg PO DIN [facility] Last Admin: 05/18/17 16:18 Dose: 40 mg Docusate Sodium (Colace Liquid) 100 mg PO TID [facility] Last Admin: 05/18/17 17:10 Dose: 100 mg Enoxaparin Sodium (Lovenox) 30 mg SC DAILY [facility] PRN Reason: Protocol Last Admin: 05/18/17 09:01 Dose: 30 mg Furosemide (Lasix) 20 mg PO DAILY [facility] Last Admin: 05/18/17 09:01 Dose: 20 mg Metoprolol Succinate (Toprol Xl) 25 mg PO DAILY [facility] Last Admin: 05/18/17 09:01 Dose: 25 mg Neomycin/Polymyxin/Bacitracin (Neosporin Triple Antibiotic Oint) 0 gm TOP DAILY [facility] Last Admin: 05/18/17 09:03 Dose: 1 unit Potassium Chloride (K-Dur 20 Meq Er Tab) 20 meq PO DAILY [facility] Last Admin: 05/18/17 09:01 Dose: 20 meq Tramadol HCl (Ultram) 50 mg PO Q6H PRN PRN Reason: Pain, severe (8-10) Last Admin: 05/18/17 17:13 Dose: 50 mg - Labs Labs: 05/18/17 10:18 05/18/17 10:18 - Constitutional Appears: Non-toxic, No Acute Distress - Head Exam Head Exam: NORMAL INSPECTION - Neck Exam Neck Exam: absent: Meningismus - Respiratory Exam Respiratory Exam: Decreased Breath Sounds - Cardiovascular Exam Cardiovascular Exam: +S1, +S2 - GI/Abdominal Exam GI & Abdominal Exam: Soft. absent: Tenderness - Extremities Exam Additional comments: right medial thigh area with decreased swelling and erythema, less tenderness Assessment and Plan - Assessment and Plan (Free Text) Plan: Assessment Left medial thigh hematoma probably related to saphenous vein harvest area CAD S/P CABG obesity with BMI 36 dyslipidemia HTN Plan patient currently has no signs of sepsis, blood and leg cultures are negative - will hold off on antibiotics, continue warm compresses on the hematoma and will monitor clinical response
[2017-05-18 19:12] VITALS: RESP 18
[2017-05-19] MEDS ORDERED: oxyCODONE 5 mg Immediate Release Tab PO STA (00:09)
[2017-05-19 07:18] LABS: BASO # 0.02 K/mm3 (0.0-2.0); BASO % 0.3 % (0.0-3.0); EOS # 0.4 (0.0-0.7); EOS % 5.5 % (1.5-5.0); GRAN # 4.59 (1.4-6.5); GRAN % 66.4 % (50.0-68.0); HEMATOCRIT 29.6 % (42.0-52.0); LYMPH % 14.5 % (22.0-35.0); MEAN CELL VOLUME 77.7 fl (80.0-105.0); MEAN CORPUSCULAR HEMOGLOBIN 24.9 pg (25.0-35.0); MEAN CORPUSCULAR HGB CONC 32.1 g/dl (31.0-37.0); MONO # 0.9 (0.1-0.6); MONO % 13.3 % (1.0-6.0); RED CELL DISTRIBUTION WIDTH 20.1 % (11.5-14.5); WHITE BLOOD COUNT 6.9 10^3/ul (4.5-11.0)
[2017-05-19 07:26] LABS: ALB/GLOB RATIO 1.2 (1.1-1.8); ALKALINE PHOSPHATASE 72 U/L (38-126); ALT/SGPT 40 U/L (7-56); AST/SGOT 36 U/L (17-59); BILIRUBIN,TOTAL 1.1 mg/dL (0.2-1.3); BLOOD UREA NITROGEN 10 mg/dL (7-21); CALCIUM 8.7 mg/dL (8.4-10.5); CARBON DIOXIDE 29 mmol/L (21-33); CHLORIDE 104 mmol/L (98-107); GFR AFRICAN-AMERICAN > 60; GLUCOSE,RANDOM 108 mg/dL (70-110); PHOSPHOROUS 3.6 mg/dL (2.5-4.5); POTASSIUM 3.4 mmol/L (3.6-5.0); SODIUM 141 mmol/L (132-148); TOTAL PROTEIN 6.5 g/dL (5.8-8.3)
[2017-05-19 07:44] VITALS: BP 112/67; PULSE 76; TEMP 98.7; O2SAT 96
[2017-05-19] MEDS: Potassium Chloride 20 mEq ER Tab PO SCH (09:21)
[2017-05-19] MEDS: Metoprolol Succinate 25 mg XL Tab PO SCH (09:22)
[2017-05-19] MEDS: Enoxaparin 30 mg Syringe SC SCH (09:22)
[2017-05-19] MEDS: Bacitracin/Neomycin/Polymyxin Oint(30GM) TOP SCH (09:30)
[2017-05-19] MEDS ORDERED: Potassium Chloride 20 mEq ER Tab PO ONE (11:00)
--- NOTE | 2017-05-19 11:01 | CP.PCM.DIS ---
Provider - Provider Date of Admission: 05/16/17 18:31 Attending physician: Musa Guerra MD Primary care physician: Dr. Musa Guerra Consults: Cardiology: Dr. Madhu Vuong ID: Dr. Home Redmond Time Spent in preparation of Discharge (in minutes): 30 Hospital Course - Lab Results Lab Results: Micro Results 05/16/17 22:15 Thigh - Left Gram Stain - Final 05/16/17 22:15 Thigh - Left Wound Culture - Preliminary NO GROWTH AFTER 24 HOURS Most Recent Lab Values WBC 6.9 10^3/ul (4.5-11.0) 05/19/17 06:35 RBC 3.81 10^6/uL (3.5-6.1) 05/19/17 06:35 Hgb 9.5 g/dL (14.0-18.0) L 05/19/17 06:35 Hct 29.6 % (42.0-52.0) L 05/19/17 06:35 MCV 77.7 fl (80.0-105.0) L 05/19/17 06:35 MCH 24.9 pg (25.0-35.0) L 05/19/17 06:35 MCHC 32.1 g/dl (31.0-37.0) 05/19/17 06:35 RDW 20.1 % (11.5-14.5) H 05/19/17 06:35 Plt Count 350 10^3/uL (120.0-450.0) 05/19/17 06:35 MPV 10.0 fl (7.0-11.0) 05/19/17 06:35 Gran % 66.4 % (50.0-68.0) 05/19/17 06:35 Lymph % (Auto) 14.5 % (22.0-35.0) L 05/19/17 06:35 [place] % (Auto) 13.3 % (1.0-6.0) H 05/19/17 06:35 Eos % (Auto) 5.5 % (1.5-5.0) H 05/19/17 06:35 Baso % (Auto) 0.3 % (0.0-3.0) 05/19/17 06:35 Gran # 4.59 (1.4-6.5) 05/19/17 06:35 Lymph # 1.0 (1.2-3.4) L 05/19/17 06:35 [place] # 0.9 (0.1-0.6) H 05/19/17 06:35 Eos # 0.4 (0.0-0.7) 05/19/17 06:35 Baso # 0.02 K/mm3 (0.0-2.0) 05/19/17 06:35 ESR 55 mm/hr (0.0-15.0) H 05/16/17 17:58 pO2 67 mm/Hg (30-55) H 05/16/17 18:16 VBG pH 7.41 (7.32-7.43) 05/16/17 18:16 VBG pCO2 40.0 (40-60) 05/16/17 18:16 VBG HCO3 25.4 mmol/l (21-28) 05/16/17 18:16 VBG Total CO2 26.6 mmol.L (22-28) 05/16/17 18:16 VBG O2 Sat (Calc) 95.7 % (40-65) H 05/16/17 18:16 VBG Base Excess 0.7 mmol/L (0.0-2.0) 05/16/17 18:16 VBG Potassium 3.9 mmol/L (3.6-5.2) 05/16/17 18:16 Sodium 138.0 mmol/L (132-148) 05/16/17 18:16 Chloride 104.0 mmol/L (98-107) 05/16/17 18:16 Glucose 156 mg/dl (75-110) H 05/16/17 18:16 Lactate 1.9 mmol/L (0.7-2.1) 05/16/17 18:16 FiO2 21.0 % 05/16/17 18:16 Sodium 141 mmol/L (132-148) 05/19/17 06:35 Potassium 3.4 mmol/L (3.6-5.0) L 05/19/17 06:35 Chloride 104 mmol/L (98-107) 05/19/17 06:35 Carbon Dioxide 29 mmol/L (21-33) 05/19/17 06:35 Anion Gap 12 (10-20) 05/19/17 06:35 BUN 10 mg/dL (7-21) 05/19/17 06:35 Creatinine 0.8 mg/dl (0.8-1.5) 05/19/17 06:35 Est GFR ( Amer) > 60 05/19/17 06:35 Est GFR (Non-Af Amer) > 60 05/19/17 06:35 Random Glucose 108 mg/dL (70-110) 05/19/17 06:35 Calcium 8.7 mg/dL (8.4-10.5) 05/19/17 06:35 Phosphorus 3.6 mg/dL (2.5-4.5) 05/19/17 06:35 Magnesium 2.0 mg/dL (1.7-2.2) 05/19/17 06:35 Total Bilirubin 1.1 mg/dL (0.2-1.3) 05/19/17 06:35 AST 36 U/L (17-59) 05/19/17 06:35 ALT 40 U/L (7-56) 05/19/17 06:35 Alkaline Phosphatase 72 U/L (38-126) 05/19/17 06:35 Total Protein 6.5 g/dL (5.8-8.3) 05/19/17 06:35 Albumin 3.5 g/dL (3.0-4.8) 05/19/17 06:35 Globulin 3.0 gm/dL 05/19/17 06:35 Albumin/Globulin Ratio 1.2 (1.1-1.8) 05/19/17 06:35 Triglycerides 84 mg/dL (35-160) 05/17/17 05:30 Cholesterol 135 mg/dL (130-200) 05/17/17 05:30 LDL Cholesterol Direct 96 mg/dL (0-129) 05/17/17 05:30 HDL Cholesterol 25 mg/dL (29-60) L 05/17/17 05:30 Venous Blood Potassium 3.9 mmol/L (3.6-5.2) 05/16/17 18:16 HIV 1&2 Ag/Ab, 4th Gen Nonreactive (Nonreactive) 05/17/17 10:00 - Hospital Course Hospital Course: Patient is a 37 year old Male with past medical history significant for CAD with 5 vessel disease s/p recent quintuple bypass surgery ( 05/03/17) at [facility] by Dr Goldman, with post op complications of anemia with 4 units of prbc transfusion, and arrhythmias with poor LVEF currently with life vest who presented to [facility] from primary care physicians office Dr. Guerra for complaints of pain and irritation surrounding surgical incision site. Patient was evaluated in ED and treated for suspected cellulitis with IV antibiotics and given wound care. US of lower extremities was conducted which was negative for DVT. Patient was placed on IV Rocephin and infectious disease was consulted. ID evaluated the patient with recommendations for switching antibiotic course to vancomycin and maxipime with planned follow up of RUSSELL culture results. Patient was noted to have clinical improvement after initial administration of antibiotics. Antibiotics were stopped and patient continued to show clinical improvement. ID recommended no home antibiotics upon discharge. Cardiology was consulted and evaluated the patient with recommendations of holding the patient's plavix and decreasing patient lipitor to 40mg daily and to continue his metoprolol. AN echocardiogram was done showing preliminary read of EF of 11%. Patient was assessed to have shown appropriate clinical improvement of suspected infection of surgical wound site. Patient was instructed on appropriate wound care and identification of infection. Patient was educated on folllowing a low salt diet with recommendations of less than 1.5grm-2gram salt diet. Patient was deemed to be hemodynamically stable, normothermic, euvolemic and discharged to home with instructions to follow up outpatient with each member of his medical care team. Patient was in understanding and agreeable to plan. - Date & Time of H&P Date of H&P: 05/17/17 Time of H&P: 15:40 Discharge Exam - Head Exam Head Exam: NORMAL INSPECTION - Eye Exam Eye Exam: EOMI, PERRL - ENT Exam ENT Exam: Mucous Membranes Moist - Respiratory Exam Respiratory Exam: Clear to PA & Lateral, NORMAL BREATHING PATTERN, UNREMARKABLE - Cardiovascular Exam Cardiovascular Exam: REGULAR RHYTHM, +S1, +S2 - GI/Abdominal Exam GI & Abdominal Exam: Normal Bowel Sounds, Soft, Unremarkable. absent: Tenderness - Extremities Exam Extremities exam: pedal pulses present - Neurological Exam Neurological exam: Alert, CN II-XII Intact, Normal Gait, Oriented x3 - Psychiatric Exam Psychiatric exam: Normal Affect, Normal Mood - Skin Skin Exam: Dry, Intact, Warm Additional comments: multiple bruising present secondary to surgical intervention s/p CABG with vein grafting Surgical site at left medial thigh is dry, slightly warm without erythema Discharge Plan - Discharge Medications Prescriptions: Atorvastatin [Lipitor] 40 mg PO DIN 30 Days #30 tab oxyCODONE/Acetaminophen [Percocet 5/325 mg Tab] 1 ea PO TID PRN #25 tab PRN Reason: Pain, Moderate (4-7) - Follow Up Plan Condition: GUARDED Disposition: HOME/ ROUTINE Instructions: Heart Failure (DC), Heart Failure (GEN), Pacemaker (DC), Pacemaker (GEN), Pulmonary Edema (DC), Pulmonary Edema (GEN), Cellulitis (ED), Ascites (DC), Ascites (GEN) Additional Instructions: Follow up with your primary medical doctor in 2 to 3 days after discharge Follow up with [facility] within one week of discharge from hospital Take all medications as prescribed. Any new onset of symptoms such as pain, swelling, fever, contact your physician and report back to the ER immediately. Adhere to a strict salt diet with less than 1.5-2gram salt per day Referrals: Musa Guerra MD [Staff Provider] - 7 Days
--- NOTE | 2017-05-19 12:54 | PN ---
DATE: 05/19/2017 CARDIOLOGY FOLLOWUP NOTE SUBJECTIVE: The patient is comfortable. The left lower extremity is much proved and there is no redness noted. PHYSICAL EXAMINATION: NECK: Negative JVD. LUNGS: Without rales. HEART: Reveals S1 and S2. EXTREMITIES: Without edema. LABORATORY DATA: Hemoglobin is 9.5. Chemistries: BUN and creatinine are unremarkable. IMPRESSION 1. Status post treatment of a hematoma in the saphenous vein graft harvesting area. 2. History of coronary artery bypass surgery. 3. Dilated cardiomyopathy. 4. Status post coronary artery bypass graft. 5. Coronary artery disease. 6. Diabetes mellitus. PLAN: Given these findings, the patient can be discharged from a cardiac perspective. Follow up instructions were given to the patient. Madhu Vuong MD
--- NOTE | 2017-05-19 13:09 | PN ---
DATE: 05/19/2017 SUBJECTIVE: The patient is in bed in no acute distress. PHYSICAL EXAMINATION: VITAL SIGNS: Temperature is 98, blood pressure is 112/60, respiratory rate of 18, heart rate of 78. HEENT: Unremarkable. NECK: Supple. LUNGS: Have decreased breath sounds. HEART: Sounds are normal S1, S2. ABDOMEN: Soft, nontender. LABORATORY DATA: Reveals a white count of 6.9, hemoglobin is noted to be 9, platelets of 350. Chemistries are noted and HIV is negative. Microbiology reveals the cultures no growth. Blood cultures are negative. Review of orders reveals the patient to be off of antibiotics. ASSESSMENT/PLAN: This is a 37-year-old male seen earlier today in 366, bed 3 with left medial thigh hematoma probably related to the saphenous vein harvest area and coronary artery disease status post coronary artery bypass graft, obesity with a BMI of 36, long-time smoker, history of dyslipidemia, hypertension and strong family history of heart disease, currently off of antibiotics. Leg has greatly improved, and the patient did have episodes of chest pain with Dr. Madhu Vuong's consultation is reviewed. Cardiology followed the patient accordingly. The patient's EKG changes. EKG findings noted. The patient is at risk for developing nosocomial infection. Home Oh MD
--- NOTE | 2017-05-20 09:16 | PN ---
DATE: 05/18/2017 SUBJECTIVE: The patient's left leg hematoma is better with after a day of warm soaks. OBJECTIVE: VITAL SIGNS: Blood pressure is 120/72 and heart rate in the 80s. The patient is afebrile. NECK: Negative JVD. LUNGS: Without rales. HEART: With S1 and S2. EXTREMITIES: Without edema. LABORATORY DATA: Hemoglobin is 9.5. Chemistries, BUN and creatinine unremarkable. The white count is within normal limits. IMPRESSION: 1. Hematoma of the left lower extremity at the saphenous vein graft incision site. 2. Status post coronary artery bypass surgery. 3. Coronary artery disease. 4. Ischemic dilated cardiomyopathy. 5. Anemia. 6. Diabetes mellitus. PLAN: Given these findings, the patient is much improved. He is ambulating without symptoms. I have left messages with ID about requesting the need for IV antibiotics. We will ask them to reevaluate whether the swelling in the left lower extremity is a hematoma and supposed to cellulitis. Madhu Vuong MD
== END 2017-05-19 12:39 | disposition home or self-care (01) | DRG 863 ==
LOC: ED 16:57 → ERH 18:31 → 3RNO 20:17
PROVIDERS: ADMIT Internal Medicine; ATTEND Internal Medicine
DX: T81.4XXA Infection following a procedure, initial encounter (principal); I42.0 Dilated cardiomyopathy; I50.9 Heart failure, unspecified; I10 Essential (primary) hypertension; E11.9 Type 2 diabetes mellitus without complications; D50.9 Iron deficiency anemia, unspecified; L03.116 Cellulitis of left lower limb; E78.5 Hyperlipidemia, unspecified; S80.12XA Contusion of left lower leg, initial encounter; E66.9 Obesity, unspecified; Z68.36 Body mass index [BMI] 36.0-36.9, adult; E78.00 Pure hypercholesterolemia, unspecified; I25.118 Atherosclerotic heart disease of native coronary artery with other forms of angina pectoris; F12.90 Cannabis use, unspecified, uncomplicated; Z87.891 Personal history of nicotine dependence; I25.5 Ischemic cardiomyopathy; Z79.82 Long term (current) use of aspirin; Z79.899 Other long term (current) drug therapy; Z95.1 Presence of aortocoronary bypass graft; Z82.49 Family history of ischemic heart disease and other diseases of the circulatory system; Y84.8 Other medical procedures as the cause of abnormal reaction of the patient, or of later complication, without mention of misadventure at the time of the procedure

== ENCOUNTER 2017-10-18 12:35 | Observation (INO) | payer OTHER ==
[2017-10-18 12:41] VITALS: BMI 31.6
[2017-10-18 13:23] LABS: BASO # 0.03 K/mm3 (0.0-2.0); BASO % 0.6 % (0.0-3.0); EOS # 0.3 (0.0-0.7); EOS % 4.6 % (1.5-5.0); GRAN # 3.48 (1.4-6.5); HEMOGLOBIN 11.8 g/dL (14.0-18.0); LYMPH # 1.3 (1.2-3.4); LYMPH % 23.3 % (22.0-35.0); MEAN CELL VOLUME 70.1 fl (80.0-105.0); MEAN CORPUSCULAR HEMOGLOBIN 22.3 pg (25.0-35.0); MEAN CORPUSCULAR HGB CONC 31.8 g/dl (31.0-37.0); MEAN PLATELET VOLUME 10.1 fl (7.0-11.0); MONO # 0.4 (0.1-0.6); MONO % 7.5 % (1.0-6.0); RBC 5.29 10^6/uL (3.5-6.1); RED CELL DISTRIBUTION WIDTH 17.3 % (11.5-14.5); WHITE BLOOD COUNT 5.4 10^3/ul (4.5-11.0)
[2017-10-18 13:25] LABS: ALB/GLOB RATIO 1.6 (1.1-1.8); ALT/SGPT 25 U/L (7-56); AST/SGOT 23 U/L (17-59); BLOOD UREA NITROGEN 15 mg/dL (7-21); CALCIUM 8.8 mg/dL (8.4-10.5); GFR AFRICAN-AMERICAN > 60; GFR NON-AFRICAN AMERICAN > 60
[2017-10-18 13:30] LABS: INR 1.03 (0.93-1.08); PARTIAL THROMBOPLASTIN TIME 28.3 Seconds (25.1-36.5); PROTHROMBIN TIME 11.9 SECONDS (9.4-12.5)
[2017-10-18 13:43] LABS: TROPONIN I 0.01 ng/mL
--- NOTE | 2017-10-18 13:47 | RAD ---
HISTORY: cp COMPARISON: No prior. FINDINGS: LUNGS: No active pulmonary disease. PLEURA: No significant pleural effusion identified, no pneumothorax apparent. CARDIOVASCULAR: Normal heart size. CABG. AICD. No congestive change. OSSEOUS STRUCTURES: No significant abnormalities. VISUALIZED UPPER ABDOMEN: Normal. OTHER FINDINGS: None. IMPRESSION: No active disease.
[2017-10-18 16:18] LABS: URINE BILIRUBIN NEGATIVE (NEGATIVE); URINE BLOOD NEGATIVE (NEGATIVE); URINE GLUCOSE (UA) NEGATIVE (NEGATIVE); URINE LEUKOCYTE ESTERASE NEGATIVE Leu/uL (NEGATIVE); URINE PROTEIN NEGATIVE mg/dL (<30 mg/dL); URINE UROBILINOGEN 0.2 E.U./dL (<1 E.U./dL)
[2017-10-18 16:19] LABS: URINE APPEARANCE CLEAR (CLEAR); URINE COLOR YELLOW (YELLOW)
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
[2017-10-18] MEDS ORDERED: Morphine 4 mg/ml ISec ONE (20:15)
[2017-10-18] MEDS ORDERED: Morphine 2 mg/ml ISec IVP STA (23:27)
[2017-10-19 02:52] VITALS: O2SAT 98
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
[2017-10-19 06:51] LABS: ALB/GLOB RATIO 1.5 (1.1-1.8); ALBUMIN 3.7 g/dL (3.0-4.8); CALCIUM 8.6 mg/dL (8.4-10.5); GFR AFRICAN-AMERICAN > 60; GFR NON-AFRICAN AMERICAN > 60
[2017-10-19 06:53] LABS: ALT/SGPT 23 U/L (7-56); AST/SGOT 25 U/L (17-59); BLOOD UREA NITROGEN 15 mg/dL (7-21)
[2017-10-19 06:59] LABS: HEMOGLOBIN 11.8 g/dL (14.0-18.0); MEAN CELL VOLUME 69.8 fl (80.0-105.0); MEAN CORPUSCULAR HGB CONC 31.5 g/dl (31.0-37.0); MEAN PLATELET VOLUME 10.3 fl (7.0-11.0); RBC 5.37 10^6/uL (3.5-6.1); RED CELL DISTRIBUTION WIDTH 17.4 % (11.5-14.5); WHITE BLOOD COUNT 5.6 10^3/ul (4.5-11.0)
[2017-10-19 07:01] LABS: TROPONIN I 0.02 ng/mL
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
[2017-10-19] MEDS ORDERED: Metoprolol Succinate 25 mg XL Tab PO SCH (10:00)
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
[2017-10-19 12:26] VITALS: BP 101/60; PULSE 61; RESP 18; TEMP 98.2
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
== END 2017-10-19 14:35 | disposition home or self-care (01) ==
LOC: ED 12:35 → ERH 13:57 → 2RSO 23:48
PROVIDERS: ADMIT Hospitalist; ATTEND Family Medicine
DX: S29.9XXA Unspecified injury of thorax, initial encounter (principal); I10 Essential (primary) hypertension; I25.5 Ischemic cardiomyopathy; I42.0 Dilated cardiomyopathy; E78.00 Pure hypercholesterolemia, unspecified; I20.8 Other forms of angina pectoris; V89.2XXA Person injured in unspecified motor-vehicle accident, traffic, initial encounter; Y92.410 Unspecified street and highway as the place of occurrence of the external cause; Z82.49 Family history of ischemic heart disease and other diseases of the circulatory system; Z79.82 Long term (current) use of aspirin; Z95.1 Presence of aortocoronary bypass graft
CPT/HCPCS: 36415; 71045; 80053; 81003; 82550; 83615; 83735; 84484; 85025; 85027; 85610; 85730; 96374; 99285; G0378; J2270

== ENCOUNTER 2018-07-08 10:26 | Outpatient (CLI) | payer OTHER, BC | END 2018-07-08 10:27 | disposition home or self-care (01) | LOC: RAD 10:26 | DX: M54.5 Low back pain (principal) ==

== ENCOUNTER 2018-09-21 06:26 | Day surgery (SDC) | payer BC, OTHER ==
[2018-09-21 06:43] VITALS: BMI 35.2
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
[2018-09-21 07:10] LABS: ALB/GLOB RATIO 1.3 (1.1-1.8); ALBUMIN 3.7 g/dL (3.0-4.8); ALT/SGPT 17 U/L (7-56); AST/SGOT 20 U/L (17-59); BLOOD UREA NITROGEN 21 mg/dL (7-21); CALCIUM 8.8 mg/dL (8.4-10.5); GFR NON-AFRICAN AMERICAN > 60
[2018-09-21 07:15] LABS: BASO # 0.05 K/mm3 (0.0-2.0); BASO % 0.9 % (0.0-3.0); EOS # 0.2 (0.0-0.7); HEMOGLOBIN 11.8 g/dL (14.0-18.0); MEAN CORPUSCULAR HEMOGLOBIN 22.1 pg (25.0-35.0); MEAN CORPUSCULAR HGB CONC 33.1 g/dl (31.0-37.0); MEAN PLATELET VOLUME 9.8 fl (7.0-11.0); MONO # 0.4 (0.1-0.6); MONO % 7.4 % (1.0-6.0); RBC 5.33 10^6/uL (3.5-6.1); RED CELL DISTRIBUTION WIDTH 14.7 % (11.5-14.5); WHITE BLOOD COUNT 5.8 10^3/uL (4.5-11.0)
[2018-09-21 07:20] LABS: TROPONIN I 0.01 ng/mL
[2018-09-21] MEDS ORDERED: Iohexol 350mgl/ml 50 ML ONE (07:26)
[2018-09-21] MEDS ORDERED: Iohexol 350 MG/100 ML VIAL ONE (07:26)
[2018-09-21] MEDS ORDERED: Lidocaine PF 2% (5 ml) Inj (For Cardiac Arrhy) ONE (07:26)
[2018-09-21 08:01] LABS: INR 0.95; PARTIAL THROMBOPLASTIN TIME 31.3 Seconds (26.9-38.3); PROTHROMBIN TIME 10.7 SECONDS (9.4-12.5)
--- NOTE | 2018-09-21 08:18 | RAD ---
Date of service: 09/21/2018 HISTORY: cp COMPARISON: 10/18/2017 TECHNIQUE: 1 view obtained. FINDINGS: LUNGS: No active pulmonary disease. PLEURA: No significant pleural effusion identified, no pneumothorax apparent. CARDIOVASCULAR: No aortic atherosclerotic calcification present. Normal cardiac size. No pulmonary vascular congestion. OSSEOUS STRUCTURES: Aortic calcification VISUALIZED UPPER ABDOMEN: Normal. OTHER FINDINGS: Dual lead pacemaker IMPRESSION: No active disease.
[2018-09-21] MEDS ORDERED: Midazolam 2 MG/2 ML VIAL ONE ×2 (08:33→08:39)
[2018-09-21 08:35] LABS: MEAN CELL VOLUME 71.4 fl (80.0-105.0)
[2018-09-21] MEDS ORDERED: Eptifibatide 20 mg/10mL Inj IVP ONE (09:16)
[2018-09-21] MEDS ORDERED: Sodium Chloride 0.9% 1,000 ML IV SCH (10:15)
[2018-09-21] MEDS: Insulin Reg-MEDIUM-Coverage SC SCH ×3 (11:30→22:03)
--- NOTE | 2018-09-21 12:39 | CARDCATH ---
PROCEDURE DATE: 09/21/2018 HISTORY: The patient is a 38-year-old male who presents with progressive exertional angina. He presented to the emergency room. Because of his high probability for new coronary lesion and his severe cardiac issues, the patient was brought up for an emergency cardiac catheterization. The patient's past medical history includes an ejection fraction of 10% in the past. He underwent coronary bypass surgery at [facility] year and half ago and has a defibrillator placed. Because of his ongoing symptoms, the patient is brought up to the stucco laborer. PROCEDURE: Left heart catheterization with coronary arteriography , left ventriculogram, aortic root injection, CORCORAN angiogram, saphenous vein graft angiogram and PTCA and stent of a ramus intermedius. The right femoral artery was cannulated with a 6-Lithuanian sheath. There were no complications. I performed moderate sedation which included the presence of an independent trained observer that assisted in monitoring the patient's level of consciousness and physiologic status. After administration of Versed and fentanyl, my intra service time was approximately 1 hour. The findings on catheterization revealed a left ventricle that was mildly global hypokinetic with an ejection fraction of 40-45%. Supra-aortic valvular injection revealed trace to 1+ aortic insufficiency. His coronary anatomy revealed a left main that showed a little tapering in the distal portion of the left main without critical lesions. The LAD was occluded in its proximal portion. The circumflex artery was occluded in its proximal portion. The ramus intermedius was diffusely diseased with a 95% stenosis in its proximal portion. The right coronary artery was occluded in its proximal portion. The vein graft to the RCA, PDA was found to be patent and provided good antegrade flow to a diffusely diseased PDA. The saphenous vein graft to the OM1 as well as to a second saphenous vein graft to the posterolateral branch of the circumflex artery was found to be patent and provided good antegrade flow. The CORCORAN to the LAD was found to be patent and provided good antegrade flow. The MENA was found to be occluded in its proximal portion which was supplying the ramus intermedius. The patient was started on intravenous Angiomax and given a dose of Integrilin and was preloaded with 600 of Plavix. The guiding catheter was placed in the ostium of left main artery and 0.014 ATW wire was used to cross the critical lesion, a 2.0 was utilized to predilate the lesion in the ramus intermedius. Multiple inflations were performed. A 2.0 x 15 mm drug-eluting stent was placed and deployed at 14 ounces of pressure in the ramus intermedius lesion. Repeat coronary arteriography after removal of the ramus intermedius revealed an excellent result with no residual stenosis and OUMAR III flow. Angio-Seal was used to close the femoral artery site. The patient tolerated the procedure well. In summary, the procedure was successful PTCA and stent of a 90% stenoses of the ramus intermedius which was supplied by a MENA which was found to be occluded on cardiac catheterization. Cardiac catheterization also revealed a patent CORCORAN to the LAD, a patent saphenous vein graft to the PDA of the RCA, a patent saphenous vein graft to the obtuse marginal branch, a patent saphenous vein graft to the posterior lateral branch of the circumflex artery. An occluded MENA to the ramus intermedius. LV function has been improved to an EF of 40-45% with insignificant aortic insufficiency. Given these findings, the patient will need to remain on aspirin indefinitely and Plavix for least a year and continue his cardiac risk reduction program. Madhu Vuong MD
--- NOTE | 2018-09-21 16:23 | CARD ---
APPROVED REPORT Date of service: 09/21/2018 EKG Measurement Heart [id number] <Conclusion> Normal sinus rhythm ST-T Changes.
--- NOTE | 2018-09-21 16:33 | HP ---
DATE OF EXAM: 09/21/2018 HISTORY OF PRESENT ILLNESS: I was called by Dr. Madhu Vuong to come to the computer lab para professional to admit this young man. He came to the emergency room with chest pain for 2 days on and off. No shortness of breath or palpitations and he was taken to the computer lab para professional. PAST MEDICAL HISTORY: He has a history of hypertension and internal defibrillator. He has pacemaker. He had open heart surgery, clot, external defibrillator was placed 05/16/2017 pacemaker wears glasses. He has left knee surgery, he has back injury history, does smoke marijuana, left knee surgery, open heart surgery, when he has anesthesia takes very long to wear off. Cardiac history in the family, he is a former smoker. He drinks alcohol and does smoke marijuana. ALLERGIES: NO KNOWN DRUG ALLERGIES. MEDICATIONS: On aspirin, Coreg, Cozaar, Aldactone, I believe now after the cardiac cath and stent placement he will be on Plavix also. REVIEW OF SYSTEM: No acute vision or hearing changes. No sore throat. No neck pain. No shortness of breath. He has chest pain. No palpitations or edema. No nausea, vomiting, constipation, diarrhea. No skin issues that he knows of. Not anxious. PHYSICAL EXAMINATION: VITAL SIGNS: He has a 98 temperature, 67 pulse, 18 respiratory rate, 144/83 blood pressure, 99% O2 sat on room air status post cardiac cath with stent placement. He is comfortable in the [facility]. He has got lay flat for 6 hours, alert, comfortable, understands the situation. No chest pain, no shortness of breath or abdominal pain right now. Alert and oriented x3. HEENT: Head is atraumatic, normocephalic. Extraocular muscles are intact. Throat is moist. NECK: Supple. HEART: Regular rate. Normal S1, S2. LUNGS: Decreased breath sounds bilaterally, but clear to auscultation. No wheezes, no rhonchi, no rales. ABDOMEN: Soft, nontender. Positive bowel sounds. No guarding, no rebound, no CVA tenderness. He is in no pain. EXTREMITIES: No edema. NEUROLOGIC: GCS is 15. Cranial nerves II-XII grossly intact. SKIN: warm and dry. tell, lying flat on the [place] is fine. No apparent rashes or ulcers. Alert and oriented x3. LYMPHATICS: Thyroid midline. No palpable appreciable lymphadenopathy at this time. LABORATORY DATA: He has 139 sodium, potassium 3.6, BUN 21, creatinine 0.9, GFR is greater than 60, sugar is 103, calcium is 8.8, magnesium 1.9, total bili is 0.3, AST is 20, ALT is 17, alk phos total creatinine kinase 69. Troponin I is 0.01, total protein 6.6, albumin is 3.7. 0.95 INR. White count 5.8, hemoglobin 0.8, hematocrit 35.7, platelets of 149. He has a chest x-ray was clear. He is status post cardiac catheterization and stent placement. Hopefully, he will stay flat for 6 hours. He will be discharged hopefully tomorrow morning and I will watch him closely. Dominick Naranjo DO MTDD
[2018-09-22 02:52] VITALS: PULSE 60
--- NOTE | 2018-09-22 04:07 | CP.PCM.PN ---
Subjective - Date & Time of Evaluation Date of Evaluation: 09/22/18 Time of Evaluation: 04:03 - Subjective Subjective: Patient was seen earlier at bedside because I was asked to co-sign an order for atorvastatin 40 mg PO x1. States that he takes atorvastatin at home and did not have it. Has no other complaints. Denies pain , swelling in right inguinal area. He is s/p cardiac cath ,has EF 40-45%, occluded LAD in proximal portion, occluded Circumflex in proximal portion, diffusely diseased with 95% stenosis of ramus intermedius. Medical record was reviewed. This 38 year old white male was kept for observation after he has had cardiac cath with stent placement. Has PMH of: HTN. S/P AICD History left knee surgery. History of marijuana use. History of smoking . History of open heart surgery. HLD. Obesity. Objective - Vital Signs/Intake and Output Vital Signs (last 24 hours): Temp Pulse Resp BP Pulse Ox 98.1 F 60 20 101/63 96 09/22/18 00:10 09/22/18 02:00 09/22/18 00:10 09/22/18 00:10 09/22/18 00:10 Intake and Output: 09/21/18 09/22/18 18:59 06:59 Intake Total 716 Output Total 1020 Balance -304 - Medications Medications: Current Medications Aspirin (Ecotrin) 81 mg PO DAILY [facility] Clopidogrel Bisulfate (Plavix) 75 mg PO DAILY [facility] Sodium Chloride (Sodium Chloride 0.9%) 1,000 mls @ 100 mls/hr IV .Q10H [facility] Last Admin: 09/21/18 10:20 Dose: 100 mls/hr Insulin Human Regular (Humulin R Med) 0 units SC [facility]; Protocol Last Admin: 09/21/18 22:03 Dose: Not Given - Labs Labs: 09/21/18 06:48 09/21/18 06:48 PT 10.7 SECONDS (9.4-12.5) 09/21/18 06:48 INR 0.95 09/21/18 06:48 APTT 31.3 Seconds (26.9-38.3) 09/21/18 06:48 - Constitutional Appears: Well, No Acute Distress, Other (Obese person.) - Head Exam Head Exam: ATRAUMATIC, NORMAL INSPECTION, NORMOCEPHALIC - Eye Exam Eye Exam: Normal appearance - ENT Exam ENT Exam: Normal External Ear Exam - Neck Exam Neck Exam: Normal Inspection - Respiratory Exam Respiratory Exam: NORMAL BREATHING PATTERN - Cardiovascular Exam Cardiovascular Exam: absent: JVD - GI/Abdominal Exam GI & Abdominal Exam: absent: Distended - Rectal Exam Rectal Exam: Deferred - Exam Additional comments: Deferred. - Extremities Exam Extremities Exam: Normal Inspection Additional comments: No hematoma in right inguinal region. - Back Exam Back Exam: NORMAL INSPECTION - Neurological Exam Neurological Exam: Alert, Awake, Oriented x3 - Psychiatric Exam Psychiatric exam: Normal Affect, Normal Mood - Skin Skin Exam: Normal Color Assessment and Plan - Assessment and Plan (Free Text) Assessment: S/P cardiac catheterization. HLD. CAD HTN. S/P AICD History left knee surgery. History of marijuana use. History of smoking . History of open heart surgery. Obesity. Plan: Lipitor 40 mg PO x 1. Observation. As per credit or loans officer.
[2018-09-22 05:58] VITALS: BP 113/72; RESP 18; TEMP 97.5; O2SAT 97
[2018-09-22 06:43] LABS: HEMOGLOBIN 12.4 g/dL (14.0-18.0); MEAN CELL VOLUME 71.4 fl (80.0-105.0); MEAN CORPUSCULAR HEMOGLOBIN 22.4 pg (25.0-35.0); MEAN CORPUSCULAR HGB CONC 31.4 g/dl (31.0-37.0); MEAN PLATELET VOLUME 10.2 fl (7.0-11.0); RBC 5.53 10^6/uL (3.5-6.1); RED CELL DISTRIBUTION WIDTH 14.7 % (11.5-14.5); WHITE BLOOD COUNT 6.3 10^3/uL (4.5-11.0)
[2018-09-22 07:02] LABS: ALB/GLOB RATIO 1.3 (1.1-1.8); ALBUMIN 3.9 g/dL (3.0-4.8); ALT/SGPT 20 U/L (7-56); AST/SGOT 23 U/L (17-59); BLOOD UREA NITROGEN 12 mg/dL (7-21); CALCIUM 8.8 mg/dL (8.4-10.5); GFR NON-AFRICAN AMERICAN > 60
[2018-09-22] MEDS: Insulin Reg-MEDIUM-Coverage SC SCH (07:41)
--- NOTE | 2018-09-22 09:26 | PN ---
DATE: 09/22/2018 CARDIOLOGY FOLLOWUP NOTE SUBJECTIVE: The patient is chest pain free. PHYSICAL EXAMINATION VITAL SIGNS: Stable. NECK: Negative JVD. LUNGS: Without rales. HEART: S1, S2. EXTREMITIES: Without edema. LABORATORY DATA: Hemoglobin is 12.7. Chemistries are unchanged. Glucose is 94. IMPRESSION 1. Stable post percutaneous transluminal coronary angioplasty and stent of a ramus intermedius. 2. 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 3. Improved ischemic dilated cardiomyopathy to an ejection fraction of 40% to 45%. 4. History of bypass surgery. 5. Diabetes mellitus. 6. Obesity. 7. Hypercholesterolemia. PLAN: Given these findings, the patient is stable for discharge. I have discussed the need for Plavix for a year with the patient in detail. A strict cardiac risk reduction program would be important. It is encouraging that his ejection fraction is down from 10% to 40% after coronary bypass surgery. Madhu Vuong MD
--- NOTE | 2018-09-23 01:29 | DS ---
HISTORY OF PRESENT ILLNESS: He came in with cardiac cath, had a stent placement, slept well overnight, and has no complaints. He is going to go home on his regular medications. He is happy. He is feeling good. No shortness of breath. No chest pain. No abdominal pain. PHYSICAL EXAMINATION: VITAL SIGNS: 97.5 temperature, 60 pulse, 115/72 blood pressure, 18 respiratory rate, and 97% O2 sat on room air. HEENT: Head; atraumatic and normocephalic. HEART: Regular rate. LUNGS: Clear to auscultation. ABDOMEN: Soft. EXTREMITIES: No edema. LABORATORY DATA: He has a 6.3 white count, 12.4 hemoglobin, 39.5 hematocrit with 149 platelets. He has a 140 sodium, potassium 4, BUN is 12, creatinine 0.8, GFR is greater than 60, sugar 92, and calcium 8.8. AST is 23, ALT is , and alk phos 38. Total bili is 0.6 and total protein is 6.8. ASSESSMENT AND PLAN: He did very well. He will be discharged home, status post Dr. Vuong cardiac cath and stent placement. He will follow up with his primary care doctor, Dr. Guerra I believe. Dominick Naranjo DO
== END 2018-09-22 09:54 | disposition home or self-care (01) ==
LOC: ED 06:26 → 2RSO 09:41 → CATH 09:41
PROVIDERS: ATTEND Internal Medicine Cardiovascular Disease
DX: I25.10 Atherosclerotic heart disease of native coronary artery without angina pectoris (principal); I35.1 Nonrheumatic aortic (valve) insufficiency; I10 Essential (primary) hypertension; E78.5 Hyperlipidemia, unspecified; F12.90 Cannabis use, unspecified, uncomplicated; E66.9 Obesity, unspecified; Z68.35 Body mass index [BMI] 35.0-35.9, adult; Z87.891 Personal history of nicotine dependence; Z95.810 Presence of automatic (implantable) cardiac defibrillator; Z79.82 Long term (current) use of aspirin
CPT/HCPCS: 71045; 80053; 82550; 82948; 83615; 83735; 84484; 85025; 85610; 85730; 93005; 93459; 99152; 99153; C1725; C1760; C1769 ×2; C1874; C1887; C2629; C9600; J0583; J1327; J1644; J2250; J3010; J7030; Q9967 ×3